=== PATIENT | male | born 1960 | race Two or more races ===

== ENCOUNTER 2016-10-01 10:40 | Emergency (ER) | payer MEDICARE ==
[~2016-10-01] VITALS: Ht 172.7 cm; Wt 78.0 kg
[2016-10-01 11:10] VITALS: BP 164/96
[2016-10-01] MEDS ORDERED: DIPHTH,PERTUSS(ACELL),TET TOX 0.5 ML DISP.SYRIN. VAX IM ONE (11:15)
[2016-10-01] MEDS ORDERED: LIDOCAINE 1% / SOD BICARB 8.4% 20 ML VIAL. IJ ONE (11:15)
[2016-10-01] MEDS ORDERED: HYDROcodone/APAP 5/325MG 1 TAB TABLET PO ONE (11:15)
--- NOTE | 2016-10-01 11:49 | RAD ---
Indication injury, pain. AP lateral and oblique views of the right wrist were obtained. Similar AP oblique and lateral images of the hand were obtained. There appears to be a soft tissue injury between the thumb and index finger. There are minimal degenerative changes involving the carpal bones on the radial side. No acute bony abnormality is seen involving the wrist or hand IMPRESSION:: No acute bony finding seen involving the wrist or hand. Soft tissue injury involving the hand as outlined above
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
== END 2016-10-01 13:02 | disposition home or self-care (01) ==
LOC: ER 10:40
DX: S61.431A Puncture wound without foreign body of right hand, initial encounter (principal); E78.00 Pure hypercholesterolemia, unspecified; I25.2 Old myocardial infarction; I10 Essential (primary) hypertension; F12.10 Cannabis abuse, uncomplicated; Z95.5 Presence of coronary angioplasty implant and graft; X99.8XXA Assault by other sharp object, initial encounter; Y93.89 Activity, other specified; Y92.512 Supermarket, store or market as the place of occurrence of the external cause; Y99.8 Other external cause status
CPT/HCPCS: 12001; 73110; 73130; 90471; 90715; 99284-25

== ENCOUNTER 2017-07-26 18:25 | Emergency (ER) | payer OTHER, MEDICARE | END 2017-07-26 20:30 | disposition home or self-care (01) | LOC: ER 18:25 | DX: S13.9XXA Sprain of joints and ligaments of unspecified parts of neck, initial encounter (principal); M25.512 Pain in left shoulder; M25.551 Pain in right hip; E78.00 Pure hypercholesterolemia, unspecified; I10 Essential (primary) hypertension; I25.2 Old myocardial infarction; F12.10 Cannabis abuse, uncomplicated; Z95.5 Presence of coronary angioplasty implant and graft; V43.62XA Car passenger injured in collision with other type car in traffic accident, initial encounter; Y93.89 Activity, other specified; Y92.481 Parking lot as the place of occurrence of the external cause; Y99.8 Other external cause status | CPT/HCPCS: 72125; 73030; 73502; 99284-25 ==